=== PATIENT | female | born 1995 | race Caucasian/White ===

== ENCOUNTER 2023-12-22 18:58 | Emergency (ER) | payer OTHER ==
[~2023-12-22] VITALS: Ht 162.6 cm; Wt 70.5 kg
[2023-12-22 19:01] VITALS: BP 131/78; PULSE 87; RESP 18; TEMP 98.1; O2SAT 99
[2023-12-23] MEDS ORDERED: CEFU250T95 PO (12:32)
== END 2023-12-22 20:42 | disposition left against medical advice (07) ==
LOC: ER 18:59
DX: O20.9 Hemorrhage in early pregnancy, unspecified (principal); Z3A.00 Weeks of gestation of pregnancy not specified; Z53.21 Procedure and treatment not carried out due to patient leaving prior to being seen by health care provider

== ENCOUNTER 2023-12-23 10:42 | Emergency (ER) | payer MEDICAID, OTHER ==
[~2023-12-23] VITALS: Ht 162.6 cm; Wt 72.8 kg
[2023-12-23 10:49] VITALS: BP 107/48; PULSE 84; RESP 18; TEMP 97.8; O2SAT 100
[2023-12-23 11:48] LABS: BILIRUBIN,URINE NEGATIVE (Neg); CLARITY,URINE CLEAR (Clear); COLOR,URINE STRAW (Yellow); GLUCOSE, URINE NEGATIVE (Neg); KETONES,URINE NEGATIVE (Neg); LEUKOCYTE ESTERASE ,URINE MODERATE (Neg); NITRITES, URINE NEGATIVE (Neg); OCCULT BLOOD,URINE NEGATIVE (Neg); PROTEIN,URINE NEGATIVE (Neg); UROBILINOGEN,URINE 0.2 E.U/dL (0.2-1.0)
[2023-12-23 11:58] LABS: UA COLLECTION TYPE VOIDED
[2023-12-23 12:02] LABS: SQUAMOUS EPITHELIAL CELL,UR MODERATE /LPF (FEW)
[2023-12-23 12:03] LABS: BACTERIA,URINE 3+ /HPF (Neg); RBC,URINE NONE SEEN /HPF (0-2)
[2023-12-23] MEDS ORDERED: CEFU250T95 PO (12:32)
== END 2023-12-23 12:42 | disposition home or self-care (01) ==
LOC: ER 10:43
DX: O20.0 Threatened abortion (principal); O23.40 Unspecified infection of urinary tract in pregnancy, unspecified trimester; Z3A.00 Weeks of gestation of pregnancy not specified; Z79.2 Long term (current) use of antibiotics; Z98.890 Other specified postprocedural states
CPT/HCPCS: 36415; 81001; 84702; 87088; 99283